=== PATIENT | female | born 1980 | race American Indian/Alaskan Native ===

== ENCOUNTER 2021-05-01 11:51 | Outpatient (CLI) | payer OTHER | END 2021-05-01 14:18 | disposition home or self-care (01) | LOC: NST 11:51 | PROVIDERS: ATTEND Obstetrics & Gynecology | DX: Z34.83 Encounter for supervision of other normal pregnancy, third trimester (principal) ==

== ENCOUNTER 2021-06-21 17:51 | Outpatient (CLI) | payer OTHER | END 2021-06-21 18:35 | disposition home or self-care (01) | LOC: NST 17:51 | PROVIDERS: ATTEND Obstetrics & Gynecology | DX: Z34.83 Encounter for supervision of other normal pregnancy, third trimester (principal) ==

== ENCOUNTER 2021-06-23 11:45 | Inpatient (IN) | payer OTHER ==
[~2021-06-23] VITALS: Ht 172.7 cm; Wt 65.8 kg
[2021-06-29] MEDS ORDERED: PRENATAL CAPLE1 EAC1 PO (13:15)
[2021-06-30] MEDS ORDERED: PROAIR HFA8.5 GM (11:03)
[2021-06-30] MEDS ORDERED: LORATADINE10 MG (11:03)
[2021-06-30] MEDS ORDERED: FLONASE16 GM (11:03)
== END 2021-07-01 13:08 | disposition home or self-care (01) | DRG 807 ==
LOC: OB/GYN 06-29 12:53 → LDR 06-29 12:53 → OB/GYN 06-29 17:09 → SURH 07-07 11:45
PROVIDERS: ADMIT Obstetrics & Gynecology Maternal & Fetal Medicine; ATTEND Obstetrics & Gynecology Maternal & Fetal Medicine
PROC: 10E0XZZ Delivery of Products of Conception, External Approach (ICD-10-PCS; principal; 2021-06-29)
PROC: 0KQM0ZZ Repair Perineum Muscle, Open Approach (ICD-10-PCS; 2021-06-29)
PROC: 10907ZC Drainage of Amniotic Fluid, Therapeutic from Products of Conception, Via Natural or Artificial Opening (ICD-10-PCS; 2021-06-29)
PROC: 3E033VJ Introduction of Other Hormone into Peripheral Vein, Percutaneous Approach (ICD-10-PCS; 2021-06-29)
PROC: 4A1HXFZ Monitoring of Products of Conception, Cardiac Rhythm, External Approach (ICD-10-PCS; 2021-06-29)
DX: O70.1 Second degree perineal laceration during delivery (principal); Z37.0 Single live birth; Z3A.38 38 weeks gestation of pregnancy